=== PATIENT | female | born 1965 | race Caucasian/White ===

== ENCOUNTER 2016-12-12 23:50 | Emergency (ER) | payer OTHER ==
[~2016-12-12] VITALS: Ht 170.2 cm; Wt 66.3 kg
[2016-12-13 00:04] VITALS: TEMP 36.9; Ht 170.2 cm; Wt 66.3 kg
[2016-12-13] MEDS ORDERED: FLUCONAZOLE 50 MG TAB PO ONE (00:30)
[2016-12-13] MEDS ORDERED: AMOX875T PO (00:31)
[2016-12-13] MEDS ORDERED: CLR10 PO (00:37)
[2016-12-13] MEDS ORDERED: ESTR2TAB PO (00:37)
[2016-12-13] MEDS ORDERED: AMOXICILLIN/CLAVULANATE TAB 875 MG TAB PO ONE (00:37)
[2016-12-13 00:49] VITALS: BP 119/73; PULSE 64; O2SAT 98
[2016-12-13] MEDS ORDERED: AMOXICILLIN/CLAVULANATE TAB 875 MG TAB PO SCH (09:00)
--- NOTE | 2016-12-13 18:42 | EMERGENCY ROOM VISIT NOTE ---
History Report prepared by Ignaciaibmichael: Starla Kowalski Under the Supervision of: Dr. Oj Luna M.D. First contact with patient: 00:13 Chief Complaint: FACIAL PAIN/INJURY Stated Complaint: PAIN ON LEFT SIDE OF FACE COMING FROM LFT EAR History of Present Illness The patient is a 51 year old female who presents to the Emergency Room with complaints of waxing and waning throbbing left sided facial pain beginning 3 days ago. The patient states that 1 month ago she had dental pain and had an x- ray that came back normal. She notes that the pain went away after that visit. She has no pain to her teeth at this time. Over the last 3 days the patient complains of pain to the left side her face involving her scalp and ear and cheek. She has a runny nose that she notes she always has. She denies any abdominal pain, vomiting, numbness, headache, swelling, rash, cough, and chest pain. The patient reports that laying on the left side onto her face relieves the pain. She notes that she had diarrhea 1 week ago. Source of History: patient Onset: 3 days ago Position: other (left face) Quality: other (throbbing) Timing: waxes/wanes Associated Symptoms: No abdominal pain, No chest pain, No cough, No headache , No numbness, No rash, No vomiting Note: Over the last 3 days the patient complains of ear pain, sensitive scalp, and a runny nose that she notes she always has. She denies any cheek pain, swelling. Review of Systems See HPI for pertinent positives & negatives. A total of 10 systems reviewed and were otherwise negative. Past Medical & Surgical Medical Problems: (1) Hypotension Family History No pertinent family history stated. Social History Smoking Status: Never Smoker Marital Status: Housing Status: lives with significant other Current/Historical Medications Scheduled Amoxicillin & Pot Clavulanate (Augmentin 875-125 mg), 875 MG PO BID Estradiol (Estradiol), 2 MG PO DAILY Loratadine (Claritin), 10 MG PO DAILY Allergies Coded Allergies: No Known Allergies (Unverified , 12/13/16) Physical Exam Vital Signs Date Time Temp Pulse Resp B/P Pulse Ox O2 Delivery O2 Flow Rate FiO2 12/13/16 00:49 64 18 119/73 98 12/13/16 00:04 36.9 67 18 106/56 97 Room Air Physical Exam Constitutional: Vital signs reviewed. Eyes: Pupils are equal round reactive to light. Conjunctiva are noninjected. ENT: Pharynx is clear without erythema or exudate. Mucous membranes are moist. Neck supple without meningeal signs. No significant facial or scalp tenderness except some mild left parotid tenderness. No erythema or discoloration or rash to the face. Mild anterior cervical lymph node enlargement without significant tenderness. No mastoid tenderness. External auditory canal within normal limits. No signs of otitis media. No percussion tenderness to the teeth. No neck swelling or cellulitis. Respiratory: Clear to auscultation bilaterally. Breath sounds are equal bilaterally. Cardiovascular: Regular rate and rhythm. No rubs or gallops. GI: Soft, nondistended and nontender. Bowel sounds are present. Musculoskeletal: No peripheral edema. Integumentary: No cyanosis. Neurological: The patient is awake and alert. No focal deficits. Psychiatric: Normal affect. Medical Decision & Procedures Medications Administered Medications (Trade) Dose Ordered Sig/Beatriz Route Start Time Stop Time Status Last Admin Dose Admin Fluconazole (Diflucan Tab) 150 mg NOW ONCE PO 12/13/16 00:30 12/13/16 00:31 DC 12/13/16 00:46 150 MG Amoxicillin/ Clavulanate Potassium (Augmentin Tab) 875 mg STK-MED ONCE PO 12/13/16 00:37 12/13/16 00:39 DC 12/13/16 00:46 875 MG ED Course 0013: The patient was evaluated in room A10. A complete history and physical exam was performed. 0030: Diflucan Tab 150mg PO. 0037: Augmentin Tab 875mg BID PO, Augmentin Tab 875mg PO. 0037: Upon reevaluation, the patient appeared to have improvement of her symptoms. I discussed tonight's findings with the patient. She verbalized agreement of the treatment plan. The patient was discharged home. Medical Decision This is a 51-year-old female presents with facial pain. Differential diagnosis includes TMJ, trigeminal neuralgia, sialoadenitis, sialolithiasis, lymphadenopathy, otitis media. I did perform a limited focused review of portions of the patient's old chart on the electronic medical record. The patient has had no prior visits. I did evaluate the patient as noted above. The patient has pain to the left side of her face which she has had for 3 days. She has no signs of dental injury. She has no dental tenderness to percussion or swelling to her gums. She has some mild tenderness over the left TMJ and parotid gland but no mastoid tenderness or signs of otitis media or externa. She does have some mild cervical lymphadenopathy on the left side. At this time the cause of her pain is unclear. It is possible that she has developed a mild parotid infection given her tenderness over that area and lymph node enlargement. I did explain to her, however, that the diagnosis was unclear at this time but that we would try empiric antibiotics and have her follow closely with her doctor for further evaluation. She was happy with this plan. She was discharged with a prescription for Augmentin. She was also given Diflucan because she states he tends to get yeast infections with strong antibiotics. She was discharged in good condition. Impression Primary Impression: Left facial pain Additional Impression: Cervical lymphadenopathy Scribe Attestation The scribe's documentation has been prepared under my direct and personally reviewed by me in its entirety. I confirm that the note above accurately reflects all work, treatment, procedures, and medical decision making performed by me. Departure Information Dispostion Home / Self-Care Prescriptions Amoxicillin & Pot Clavulanate (Augmentin 875-125 mg) 1 Tab Tab 875 MG PO BID, #18 TAB Prov: Oj Luna M.D. 12/13/16 Referrals No Doctor, Assigned (PCP) Forms HOME CARE DOCUMENTATION FORM, IMPORTANT VISIT INFORMATION Patient Instructions Lymphadenopathy, My [facility] Additional Instructions You have been examined and treated today on an emergency basis only. This is not a substitute for, or an effort to provide, complete comprehensive medical care. It is impossible to recognize and treat all injuries or illnesses in a single emergency department visit. It is therefore important that you follow up closely with your physician. Call as soon as possible for an appointment. Return for worsening symptoms or if you develop fever, vomiting, headache, swelling or redness to your face, rash, difficulty breathing or any other concerning symptoms. Problem Qualifiers
== END 2016-12-13 00:50 | disposition home or self-care (01) ==
LOC: C.EDB 23:52 → C.EDA 12-13 00:50
DX: R51 Headache (principal); R59.1 Generalized enlarged lymph nodes; Z79.899 Other long term (current) drug therapy